=== PATIENT | female | born 1945 | race Caucasian/White ===

== ENCOUNTER → 2017-09-25 | Outpatient (CLI) | payer OTHER ==
[~2017-09-25] MED LIST: ACYCLOVIR 400400 MG PO; ARIXTRA; ASPIRIN EC325 M1; CALTRATE-600 W1 EACH; CITRACAL + D C1 EACH PO; COLACE 100 MG100 MG; ESTRACE; ESTRACE 0.01% VAG; EYE RELIEF PO; FLONASE; FLONASE16 GM NASAL; FOLIC ACID; FOLIC ACID1 MG PO; MULTIVITAMINS PO; NAPROSYN500 MG; OXYIR 5 MG CAPSU5 M1; PERCOCET 5-3251 EACH; PREDNISONE 20 M20 MG PO; PRILOSEC 20 MG20 MG PO; REFRESH P.M. O3.5 G2 OP; SIMVASTATIN80 MG PO; SYSTANE BALANCE10 ML OPHTHALMIC; TRIGLIDE160 MG PO; VITAMIN E400 UNIT; VITAMIN E400 UNIT PO; ZOCOR; ZYRTEC; ZYRTEC 10 MG TA10 M1 PO
== END ==
LOC: M.MRI 10:59
DX: K81.9 Cholecystitis, unspecified (principal); M47.896 Other spondylosis, lumbar region; M41.86 Other forms of scoliosis, lumbar region

== ENCOUNTER → 2017-10-27 | Outpatient (CLI) | payer OTHER ==
--- NOTE | 2017-10-27 13:00 | CARDNUC ---
[place] [address] CARDIAC NUCLEAR IMAGING REPORT Name: JANIE IRIZARRY Room: [facility]#: [id number] Admission: 10/27/17 Attend Phys: Mejia Tong MD Discharge: Date of : 41 Date of Service: 10/27/17 [facility] Report #: [id number] THIS REPORT FOR: //name// APPROVED REPORT Exam: Nuclear Stress Test Indication: Chest pain Patient Location: Out-Patient Stress Tech: Daya Isbell Stress Nurse: THERON Keating Tech:ESTEFANÍA Nava Ht: 5 ft 2 in Wt: 157 lbs BSA: 1.72 m2 BMI: 28.71 Medical History Medical History: HTN Medications: simvastatin Allergies: aspirin Cardiac Risk Factors: Age, HTN Exercise History: Sedentary Stress Test Details Stress Test: Pharmacologic stress was paired with low level exercise. Reason for pharmacologic stress test: physical limitation. HR Resting HR: 68 bpm Max Heart Rate (APMHR): 146 bpm Max HR Achieved: 125 bpm Target HR (85% APMHR): 124 bpm % of APMHR: 85 Recovery HR: 94 bpm BP Resting BP: 164/88 mmHg Max BP: 178/90 mmHg ECG Resting ECG: Sinus Rhythm, normal EKG Stress ECG: Sinus Tachycardia ST Change: None Arrhythmia: None Recovery ECG: Sinus Rhythm, normal EKG Recovery ST Change: None Recovery Arrhythmia: [place] [address] CARDIAC NUCLEAR IMAGING REPORT Name: JANIE IRIZARRY Room: [facility]#: [id number] Admission: 10/27/17 Attend Phys: Mejia Tong MD Discharge: Date of : 41 Date of Service: 10/27/17 [facility] Report #: [id number] Clinical Reason for Termination: Completed protocol Stress Symptoms: None Exercise duration: 4 min 0 sec Exercise capacity: 1.84 METs The patient had no significant symptoms with Lexiscan infusion. Stress ECG Conclusion The baseline 12-lead electrocardiogram showed normal sinus rhythm with no significant ST or T wave abnormality. EKGs obtained during and post Lexiscan stress showed sinus rhythm and sinus tachycardia with no significant ST or T wave changes when compared to baseline. There were no stress-induced arrhythmias. NM EXAM: Myocardial Perfusion REST/STRESS Imaging Protocol: Rest Tc-99m/Stress Tc-99m 1 day Resting Data Rest SPECT myocardial perfusion imaging was performed in supine position 30 minutes following the intravenous injection of 11.7 mCi of Tc-99m Sestamibi. Time of rest injection: 0855 Time of rest imagin The images were gated to evaluate regional wall motion and calculate left ventricular ejection fraction. Administration Route: IV Pharmacologic Stress Pharmacologic stress test was performed by injecting Regadenoson 0.4 mg IV push followed by the intravenous injection of 33.6 mCi of Tc-99m Sestamibi. Time of stress injection: 1030 Time of stress imagin Administration Route: IV Gated Stress SPECT was performed 40 minutes after stress injection. The images were gated to evaluate regional wall motion and calculate left ventricular ejection fraction. Prone imaging was performed. Study Quality Study: Good Artifact: Mild [place] [address] CARDIAC NUCLEAR IMAGING REPORT Name: JANIE IRIZARRY Room: [facility]#: [id number] Admission: 10/27/17 Attend Phys: Mejia Tong MD Discharge: Date of : 41 Date of Service: 10/27/17 1300 Report #: [id number] Study Data At rest, the left ventricular ejection fraction was 68%.. Post stress, the left ventricular ejection was 70%.. TID = 0.90. Perfusion Myocardial perfusion images obtained at rest show a mild intensity mid anterior wall defect consistent with breast attenuation artifact. Post stress myocardial perfusion images show uniform uptake of the radioisotope throughout the myocardium without defect. Wall Motion Normal left ventricular wall motion. Nuclear Conclusion ECG Findings: negative for ischemia Clinical Findings: negative for ischemia Nuclear Findings: positive for ischemia Exercise Capacity: not assessed Left Ventricular Function: normal Risk Study: low Myocardial perfusion images show no defect to suggest infarct or ischemia. Left particular systolic function appears normal on gated studies. This is a low risk study. <Conclusion> The baseline 12-lead electrocardiogram showed normal sinus rhythm with no significant ST or T wave abnormality. EKGs obtained during and post Lexiscan stress showed sinus rhythm and sinus tachycardia with no significant ST or T wave changes when compared to baseline. There were no stress-induced arrhythmias. <ELECTRONICALLY SIGNED> By: Aubrey Cook MD, FACC 10/27/17 1300 1300 1300 Aubrey Cook MD, FACC /INF
--- NOTE | 2017-10-27 13:50 | 2DMMODE ---
[place] [address] 2 D/M-MODE ECHOCARDIOGRAM Name: JANIE IRIZARRY Room: [facility]#: [id number] Admission: 10/27/17 Attend Phys: Mejia Tong MD Discharge: Date of : 41 Date of Service: 10/27/17 1350 Report #: [id number] THIS REPORT FOR: //name// APPROVED REPORT Study performed: 10/27/2017 08:03:50 EXAM: Comprehensive 2D, Doppler, and color-flow Echocardiogram Patient Location: Out-Patient Status: routine BSA: 1.72 HR: 64 bpm BP: 152/98 mmHg Other Information Study Quality: Good Indications Pre-Op Chest Pain 2D Dimensions LVEF(%): 74.31 (>50%) IVSd: 9.84 (7-11mm) LVOT Diam: 20.20 (18-24mm) LVDd: 42.68 mm PWd: 8.88 (7-11mm) Ascending Ao: 35.90 (22-36mm) LVDs: 24.38 (25-40mm) Aortic Root: 31.95 mm Gomes's LVEF: 74.31 % Volumes Left Atrial Volume (Systole) LA ESV Index: 18.60 mL/m2 Aortic Valve AoV Peak Mick.: 1.09 m/s AO Peak Gr.: 4.73 mmHg LVOT Max P.28 mmHg AO Mean Gr.: 2.70 mmHg LVOT Mean P.13 mmHg LVOT Max V: 0.75 m/s AO V2 VTI: 21.88 cm LVOT Mean V: 0.49 m/s SERENE (VTI): 2.49 cm2 LVOT V1 VTI: 17.03 cm Mitral Valve E/A Ratio: 0.64 [place] [address] 2 D/M-MODE ECHOCARDIOGRAM Name: JANIE IRIZARRY Room: [facility]#: [id number] Admission: 10/27/17 Attend Phys: Mejia Tong MD Discharge: Date of : 41 Date of Service: 10/27/17 1350 Report #: [id number] MV Decel. Time: 314.94 ms MV E Max Mick.: 0.36 m/s MV PHT: 91.33 ms MVA (PHT): 2.41 cm2 TDI E/Lateral E': 4.50 E/Medial E': 5.14 Medial E' Mick.: 0.07 m/s Lateral E' Mick.: 0.08 m/s Pulmonary Valve PV Peak Mick.: 0.69 m/s PV Peak Gr.: 1.92 mmHg Tricuspid Valve TR Peak Gr.: 16.73 mmHg RVSP: 21.73 mmHg Left Ventricle The left ventricle is normal size. There is normal LV segmental wall motion. There is normal left ventricular wall thickness. Left ventricular systolic function is normal. LVEF is 55-60%. Grade I - abnormal relaxation pattern. Right Ventricle The right ventricle is normal size. The right ventricular systolic function is normal. Atria The left atrium size is normal. The right atrium size is normal. Aortic Valve The aortic valve is normal in structure. Mild aortic regurgitation. There is no aortic valvular stenosis. Mitral Valve The mitral valve is normal in structure. Mild mitral regurgitation. No evidence of mitral valve stenosis. Tricuspid Valve The tricuspid valve is normal in structure. Mild tricuspid regurgitation. The RVSP is _21.7____ mmHg. Pulmonic Valve The pulmonary valve is normal in structure. There is no pulmonic [place] [address] 2 D/M-MODE ECHOCARDIOGRAM Name: JANIE IRIZARRY Room: [facility]#: [id number] Admission: 10/27/17 Attend Phys: Mejia Tong MD Discharge: Date of : 41 Date of Service: 10/27/17 1350 Report #: [id number] Great Vessels The aortic root is normal in size. IVC is normal in size and collapses with >50% inspiration Pericardium There is no pericardial effusion. <Conclusion> The left ventricle is normal size. There is normal left ventricular wall thickness. Left ventricular systolic function is normal. LVEF is 55-60%. Grade I - abnormal relaxation pattern. Mild aortic regurgitation. Mild mitral regurgitation. Mild tricuspid regurgitation. The RVSP is _21.7____ mmHg. IVC is normal in size and collapses with >50% inspiration <ELECTRONICALLY SIGNED> By: Aubrey Cook MD, FACC 10/27/17 1350 1350 1350 Aubrey Cook MD, FACC /INF
== END ==
LOC: M.CRD 07:13 → M.NUC 09:00
DX: Z01.818 Encounter for other preprocedural examination (principal)

== ENCOUNTER → 2018-12-07 | Outpatient (CLI) | payer OTHER | LOC: M.RAD 12:41 | DX: Z12.31 Encounter for screening mammogram for malignant neoplasm of breast (principal) ==

== ENCOUNTER → 2020-05-08 | Outpatient (CLI) | payer OTHER | LOC: M.RAD 03-07 15:20 | PROVIDERS: ATTEND Family Medicine | DX: Z12.31 Encounter for screening mammogram for malignant neoplasm of breast (principal); M81.0 Age-related osteoporosis without current pathological fracture; M85.88 Other specified disorders of bone density and structure, other site ==

== ENCOUNTER → 2021-06-04 | Outpatient (CLI) | payer OTHER | LOC: M.RAD 12:40 | PROVIDERS: ATTEND Family Medicine | DX: Z12.31 Encounter for screening mammogram for malignant neoplasm of breast (principal) ==